=== PATIENT | female | born 1955 | race Caucasian/White ===

== ENCOUNTER → 2022-01-14 | Outpatient (CLI) | payer MEDICARE, OTHER ==
[~2022-01-14] MED LIST: ASPI325T4 PO; Alprazolam PO; BCL10T PO; Biotin PO; CHOL500014 PO; CLCX100C PO; DCS100C PO; Gabapentin PO; IRON150C6 PO; Losartan Potassium PO; Non Medication Item PO; Omega 3 Polyunsat Fatty Acids PO; PNT40TEC PO; Patients Own Medication PO; Prednisone PO; Tramadol Hcl PO
== END ==
LOC: CARD 11:27
PROVIDERS: ATTEND Student in an Organized Health Care Education/Training Program
DX: I08.0 Rheumatic disorders of both mitral and aortic valves (principal)
CPT/HCPCS: 93306